=== PATIENT | female | born 1955 | race Caucasian/White ===

== ENCOUNTER 2017-05-16 21:52 | Emergency (ER) | payer MEDICAID ==
[~2017-05-16] VITALS: Ht 162.6 cm; Wt 52.0 kg
[~2017-05-16 21:52] MED LIST: IOHEXOL-350 100 ML BOTTLE ONE; SODIUM CHLORIDE 0.9% 10ML VIAL ONE
[2017-05-16] MEDS ORDERED: ACETAMINOPHEN 325MG TABLET PO STA (22:39)
[2017-05-16] MEDS ORDERED: ONDANSETRON HCL 4MG/2ML VIAL IV STA (22:39)
[2017-05-16] MEDS ORDERED: MORPHINE SULFATE 4 MG/ML CPJ (NOT FOR IM USE) IV STA (22:39)
[2017-05-16] MEDS ORDERED: PIPERACILLIN/TAZ 3.375G PREMIX 50 ML IV ONE (22:45)
[2017-05-16] MEDS ORDERED: SODIUM CHLORIDE 0.9% 1000ML BAG (SEPSIS BOLUS) IV ONE (22:45)
[2017-05-16] MEDS ORDERED: VANCOMYCIN 1 G PREMIX 200 ML IV ONE (22:45)
[2017-05-16 23:18] LABS: HEMATOCRIT. 30.5 % (36.0-48.0); HEMOGLOBIN. 10.1 g/dL (12.0-16.0); MEAN CORPUSCULAR VOLUME 75.6 fL (81.0-99.0); MEAN PLATELET VOLUME 6.2 fl (7.4-10.4); PLATELET 440 x1000/uL (130-400); RED BLOOD CELL COUNT 4.04 mill/uL (4.2-5.4); RED CELL DISTRIBUTION WIDTH 18.8 % (11.6-14.6)
[2017-05-16 23:21] LABS: CHLORIDE 98 mEq/L (98-107); PLATELET ESTIMATE NORMAL
[2017-05-16 23:23] LABS: INR 1.3; PROTHROMBIN TIME 13.4 sec
[2017-05-16 23:30] LABS: CARBON DIOXIDE 27 mEq/L (21-32)
[2017-05-17 01:18] LABS: CLARITY URINE CLOUDY (CLEAR); COLOR URINE YELLOW (YELLOW); GLUCOSE URINE NEGATIVE (NEGATIVE); KETONES URINE NEGATIVE (NEGATIVE); LEUKOCYTE ESTERASE URINE 3+ (NEGATIVE); NITRITE URINE NEGATIVE (NEGATIVE); OCCULT BLOOD URINE 2+ (NEGATIVE); PROTEIN URINE TRACE (NEGATIVE); SPECIFIC GRAVITY URINE 1.023 (1.005-1.030); UROBILINOGEN URINE 0.2 E.U./dL (0.2-1.0)
[2017-05-17] MEDS ORDERED: SODIUM CHLORIDE 0.9% 1,000 ML IV ONE (02:39)
[2017-05-17] MEDS ORDERED: CEFTRIAXONE 1 G PREMIX 50 ML IV ONE (02:45)
[2017-05-17] MEDS ORDERED: MORPHINE SULFATE 4 MG/ML CPJ (NOT FOR IM USE) IV ONE ×2 (03:00→08:00)
[2017-05-17] MEDS ORDERED: ONDANSETRON HCL 4MG/2ML VIAL IV ONE ×2 (06:30→08:00)
[2017-05-17] MEDS ORDERED: ACETAMINOPHEN 325MG TABLET PO ONE ×2 (08:45)
[2017-05-17] MEDS ORDERED: ACETAMINOPHEN 325MG TABLET ONE (08:45)
[2017-05-17 08:50] VITALS: BP 148/82
== END 2017-05-17 09:02 | disposition short-term general hospital (02) ==
LOC: ER 22:01 → EDBEDREQTM 05-17 00:38 → EDBEDREQ 05-17 00:38 → ENRESERV 05-17 03:32 → CANRESERV 05-17 03:32 → ER 05-17 09:02 → ENRESERV 05-17 16:34 → CANRESERV 05-17 16:34
DX: A41.9 Sepsis, unspecified organism (principal); L02.91 Cutaneous abscess, unspecified; Z85.43 Personal history of malignant neoplasm of ovary; Z87.891 Personal history of nicotine dependence
CPT/HCPCS: 36415; 71010; 74177; 80053; 81001; 83605; 83690; 85025; 85610; 86850; 86900; 86901; 87040; 93005; 96365; 96367; 96375; 96376; 99291; A4216; J0696; J2270; J2405; J2543; J3370; J7030; J7040; Q9967; Z7610